=== PATIENT | female | born 1990 | race African-American/Black ===

== ENCOUNTER 2023-01-11 18:40 | Inpatient (IN) | payer MEDICAID, OTHER ==
[~2023-01-11] VITALS: Ht 165.1 cm; Wt 103.6 kg
[2023-01-11] VITALS (9 sets, daily range): BP systolic 123–153; BP diastolic 60–94
[2023-01-11] MEDS ORDERED: IRON65TA2 PO (19:02)
[2023-01-11] MEDS ORDERED: ASPI81CH33 PO (19:02)
[2023-01-11] MEDS ORDERED: PRENTAB9 PO (19:02)
[2023-01-11] MEDS ORDERED: INSUR50VL SC (19:02)
[2023-01-11] MEDS ORDERED: VITA250T4 PO (19:02)
[2023-01-11] MEDS ORDERED: INSURSD SC (19:02)
[2023-01-11] MEDS ORDERED: HOME MED LIST COMPLETE! XX SCH (19:05)
[2023-01-11 20:13] LABS: HEMATOCRIT 27.9 % (36.0-47.0); HEMOGLOBIN 8.8 g/dl (12.0-15.5); MEAN CORPUSCULAR HEMOGLOBIN 24.7 pg (27.0-33.0); MEAN CORPUSCULAR HGB CONC 31.5 g/dl (32.0-36.5); MEAN CORPUSCULAR VOLUME 78.4 fl (80.0-96.0); PLATELET COUNT, AUTOMATED 248 10^3/uL (150-450); RED BLOOD COUNT 3.56 10^6/uL (4.00-5.40); WHITE BLOOD COUNT 6.5 10^3/uL (4.0-10.0)
[2023-01-11] MEDS ORDERED: LR 1,000 ML IV ONE (20:20)
[2023-01-11 20:37] LABS: ALBUMIN 2.3 G/DL (3.2-5.2); ALKALINE PHOSPHATASE 163 U/L (46-116); ALT/SGPT 11 U/L (7.0-40); AST/SGOT 19 U/L (<34); BILIRUBIN,TOTAL 0.2 MG/DL (0.3-1.2); BLOOD UREA NITROGEN 6 MG/DL (9-23); CALCIUM LEVEL 8.5 MG/DL (8.5-10.1); CARBON DIOXIDE LEVEL 25 MMOL/L (20-31); CHLORIDE LEVEL 107 MMOL/L (98-107); CREATININE FOR GFR 0.65 MG/DL (0.55-1.30); GLOMERULAR FILTRATION RATE > 60.0 (>60); GLUCOSE, FASTING 109 MG/DL (60-100); POTASSIUM SERUM 3.7 MMOL/L (3.5-5.1); SODIUM LEVEL 139 MMOL/L (136-145); TOTAL PROTEIN 5.6 G/DL (5.7-8.2)
[2023-01-11] MEDS ORDERED: OXYTOCIN INJ 10UNITS/ML 1ML VIAL IM PRN (21:05)
[2023-01-11] MEDS ORDERED: LR 1,000 ML IV SCH (21:05)
[2023-01-11] MEDS ORDERED: METHYLERGONOVINE MALEATE 0.2MG/ML 1ML VIAL IM PRN (21:05)
[2023-01-11] MEDS ORDERED: TRANEXAMIC ACID INJection 1,000 MG in NS 100 ML IV PRN (21:05)
[2023-01-11] MEDS ORDERED: OXYTOCIN DRIP 30 UNITS in IV 1 EA IV PRN ×4 (21:05)
[2023-01-11] MEDS ORDERED: LIDOCAINE 1% MDV 20ML VIAL INFIL PRN (21:05)
[2023-01-11] MEDS ORDERED: OXYTOCIN DRIP 30 UNITS in IV 1 EA IV SCH (21:05)
[2023-01-11 21:32] LABS: TOTAL PROTEIN,RANDOM URINE 7.9 MG/DL (0.0-14.0)
[2023-01-11 21:37] LABS: CREATININE,RANDOM URINE 56.7 MG/DL
[2023-01-11] MEDS: LR 1,000 ML IV SCH (23:49)
[2023-01-12] VITALS (67 sets, daily range): BP systolic 80–175; BP diastolic 45–100
[2023-01-12] MEDS ORDERED: ACETAMINOPHEN 500 MG TAB PO PRN (09:20)
[2023-01-12] MEDS: LR 1,000 ML IV SCH ×2 (09:41→15:48)
[2023-01-12] MEDS ORDERED: LR 500 ML IV PRN (11:40)
[2023-01-12] MEDS ORDERED: EPIDURAL/PCA KEYS XX PRN (11:40)
[2023-01-12] MEDS ORDERED: FENTANYL/ROPIVACAINE/NACL BAG 100 ML EPIDURAL SCH (11:40)
[2023-01-12] MEDS ORDERED: ePHEDrine SULFATE 25 MG/5 ML(5MG/ML) SYRINGE IVP PRN (11:40)
[2023-01-12] MEDS ORDERED: NALOXONE INJ 0.4MG/1ML VIAL IV PRN (11:40)
[2023-01-12] MEDS ORDERED: ONDANSETRON 4MG 2ML VIAL IV PRN ×2 (11:40→17:25)
[2023-01-12] MEDS ORDERED: diphenhydrAMINE 50MG/ML VIAL IV PRN (11:40)
[2023-01-12] MEDS ORDERED: OXYTOCIN INJ 10UNITS/ML 1ML VIAL IM PRN (15:15)
[2023-01-12] MEDS ORDERED: OXYTOCIN DRIP 30 UNITS in IV 1 EA IV SCH ×5 (15:15→17:25)
[2023-01-12 17:05] LABS: CORD GAS ABE A -6.7; CORD GAS ABE V -6.2; CORD GAS HCO3 A 22.5 MEQ/L; CORD GAS HCO3 V 21.8 MEQ/L; CORD GAS O2 SAT A 26.5 %; CORD GAS O2 SAT V 53.3 %; CORD GAS PCO2 A 61.1 mmHg; CORD GAS PCO2 V 52.4 mmHg; CORD GAS PH A 7.184 UNITS; CORD GAS PH V 7.237 UNITS; CORD GAS PO2 A 15.2 mmHg; CORD GAS PO2 V 25.4 mmHg; CORD GAS SBC A 17.5 MEQ/L; CORD GAS SBC V 18.4 MEQ/L; CORD GAS TCO2 A 24.4 MEQ/L; CORD GAS TCO2 V 23.4 MEQ/L
[2023-01-12] MEDS ORDERED: ACETAMINOPHEN TAB 650MG DOSE (2X325MG) PO PRN (17:25)
[2023-01-12] MEDS ORDERED: METHYLERGONOVINE MALEATE 0.2 MG TAB PO PRN (17:25)
[2023-01-12] MEDS ORDERED: IBUPROFEN 600MG TAB PO PRN (17:25)
[2023-01-12] MEDS ORDERED: MOM 30ML SUSPENSION UDC PO PRN (17:25)
[2023-01-12] MEDS ORDERED: DIBUCAINE 1% OINTMENT 30GM TOP PRN (17:25)
[2023-01-12] MEDS ORDERED: RHOGAM 300MCG (1500IU) INJ IM SCH (17:25)
[2023-01-12] MEDS ORDERED: DOCUSATE SODIUM 100MG CAPSULE PO PRN (17:25)
[2023-01-12] MEDS: IBUPROFEN 800 MG TAB PO PRN (18:46)
[2023-01-12] MEDS: ACETAMINOPHEN 500 MG TAB PO PRN (21:13)
[2023-01-13 06:43] LABS: HEMATOCRIT 26.1 % (36.0-47.0); HEMOGLOBIN 8.3 g/dl (12.0-15.5); MEAN CORPUSCULAR HEMOGLOBIN 24.6 pg (27.0-33.0); MEAN CORPUSCULAR HGB CONC 31.8 g/dl (32.0-36.5); MEAN CORPUSCULAR VOLUME 77.4 fl (80.0-96.0); PLATELET COUNT, AUTOMATED 217 10^3/uL (150-450); RED BLOOD COUNT 3.37 10^6/uL (4.00-5.40); WHITE BLOOD COUNT 9.8 10^3/uL (4.0-10.0)
[2023-01-13] MEDS: PRENATAL VITAMINS CHEWABLE TABLET PO SCH (10:59)
[2023-01-13] MEDS: FERROUS SULFATE 325MG TAB PO SCH (10:59)
[2023-01-13] MEDS: IBUPROFEN 800 MG TAB PO PRN (16:04)
[2023-01-13] MEDS: ACETAMINOPHEN 500 MG TAB PO PRN ×2 (17:40→22:58)
[2023-01-14] MEDS: IBUPROFEN 800 MG TAB PO PRN ×2 (00:19→10:35)
[2023-01-14] MEDS: ACETAMINOPHEN 500 MG TAB PO PRN (06:02)
[2023-01-14 06:30] VITALS: BP 121/71
[2023-01-14] MEDS ORDERED: MEASLES,MUMPS,RUBELLA VACCINE INJ (MMR-II) SC.IMMUN ONE (09:00)
[2023-01-14] MEDS: FERROUS SULFATE 325MG TAB PO SCH (10:34)
[2023-01-14] MEDS: PRENATAL VITAMINS CHEWABLE TABLET PO SCH (10:35)
== END 2023-01-14 15:25 | disposition home or self-care (01) | DRG 807 ==
LOC: M LDO 18:40 → M LDI 21:19 → M OBS 01-12 20:59
PROVIDERS: ADMIT Obstetrics & Gynecology; ATTEND Obstetrics & Gynecology
PROC: 3E033VJ Introduction of Other Hormone into Peripheral Vein, Percutaneous Approach (ICD-10-PCS; 2023-01-11)
PROC: 10E0XZZ Delivery of Products of Conception, External Approach (ICD-10-PCS; principal; 2023-01-12)
DX: O13.4 Gestational [pregnancy-induced] hypertension without significant proteinuria, complicating childbirth (principal); Z37.0 Single live birth; Z3A.38 38 weeks gestation of pregnancy; O34.219 Maternal care for unspecified type scar from previous cesarean delivery; O24.424 Gestational diabetes mellitus in childbirth, insulin controlled; O99.02 Anemia complicating childbirth; O66.0 Obstructed labor due to shoulder dystocia

== ENCOUNTER → 2023-03-13 | Outpatient (CLI) | payer OTHER ==
[~2023-03-13] MED LIST: ASPI81CH33 PO; INSUR50VL SC; INSURSD SC; IRON65TA2 PO; PRENTAB9 PO; VITA250T4 PO
== END ==
LOC: M PLAIMG 12:06
PROVIDERS: ATTEND Family Medicine
DX: Z53.9 Procedure and treatment not carried out, unspecified reason (principal)

== ENCOUNTER 2023-09-09 09:09 | Emergency (ER) | payer OTHER ==
[~2023-09-09] VITALS: Ht 162.6 cm; Wt 100.0 kg
[~2023-09-09 09:09] MED LIST changes: +INSU100V19 SC; -INSURSD SC
[2023-09-09] MEDS ORDERED: AMLO1TAB25 (09:30)
[2023-09-09 12:31] LABS: BASO % 0.5 % (0.0-1.0); EOS # 0.1 10^3/uL (0.0-0.5); HEMATOCRIT 39.4 % (36.0-47.0); HEMOGLOBIN 12.5 g/dl (12.0-15.5); LYMPH # 2.6 10^3/uL (1.5-5.0); LYMPH % 43.3 % (24.0-44.0); MEAN CORPUSCULAR HEMOGLOBIN 26.6 pg (27.0-33.0); MEAN CORPUSCULAR HGB CONC 31.7 g/dl (32.0-36.5); MEAN CORPUSCULAR VOLUME 83.8 fl (80.0-96.0); MONO # 0.5 10^3/uL (0.0-0.8); MONO % 7.5 % (2.0-8.0); NEUTROPHILS # 2.9 10^3/uL (1.5-8.5); NEUTROPHILS % 47.4 % (36.0-66.0); PLATELET COUNT, AUTOMATED 336 10^3/uL (150-450)
[2023-09-09 12:44] LABS: INR 1.06; PROTHROMBIN TIME 13.5 SECONDS (12.5-14.5)
[2023-09-09 12:45] LABS: PARTIAL THROMBOPLASTIN TIME 33.6 SECONDS (24.8-34.2)
[2023-09-09 12:47] LABS: D-DIMER QUANT 0.34 ug/mL (<0.5)
[2023-09-09 13:02] LABS: CK-MB VALUE MASS < 1.0 NG/ML (<3.6); LIPASE 54 U/L (12-53)
[2023-09-09 13:04] LABS: ALBUMIN 3.6 G/DL (3.2-5.2); ALKALINE PHOSPHATASE 138 U/L (46-116); ALT/SGPT 24 U/L (7.0-40); AST/SGOT 19 U/L (<34); BILIRUBIN,DIRECT 0.1 MG/DL (<0.4); BILIRUBIN,TOTAL 0.4 MG/DL (0.3-1.2); BLOOD UREA NITROGEN 8 MG/DL (9-23); CALCIUM LEVEL 9.7 MG/DL (8.5-10.1); CARBON DIOXIDE LEVEL 28 MMOL/L (20-31); CHLORIDE LEVEL 107 MMOL/L (98-107); CPK CREATINE PHOSPHOKINASE 141 U/L (34-145); CREATININE FOR GFR 0.75 MG/DL (0.55-1.30); GLOMERULAR FILTRATION RATE > 60.0 (>60); GLUCOSE, FASTING 99 MG/DL (60-100); POTASSIUM SERUM 4.3 MMOL/L (3.5-5.1); SODIUM LEVEL 143 MMOL/L (136-145); TOTAL PROTEIN 7.6 G/DL (5.7-8.2)
[2023-09-09 13:06] LABS: HCG, SERUM QUALITATIVE NEGATIVE (NEGATIVE); THYROID STIMULATING HORMONE 1.017 uIU/ML (0.55-4.78)
[2023-09-09 13:07] LABS: FREE T4 0.94 NG/DL (0.89-1.76)
[2023-09-09 13:21] LABS: RSV AMPLIFICATION NEGATIVE (NEGATIVE)
[2023-09-09 13:53] LABS: CK-MB VALUE MASS < 1.0 NG/ML (<3.6)
[2023-09-09 13:54] LABS: CPK CREATINE PHOSPHOKINASE 131 U/L (34-145); MB/CK RELATIVE INDEX 0.76 (< OR =4)
[2023-09-09 15:17] VITALS: BP 134/69; TEMP 97.5; O2SAT 99
== END 2023-09-09 15:20 | disposition home or self-care (01) ==
LOC: M ED 09:09
DX: R07.9 Chest pain, unspecified (principal); I10 Essential (primary) hypertension; Z79.899 Other long term (current) drug therapy

== ENCOUNTER → 2024-03-01 | Outpatient (REF) | payer OTHER ==
[~2024-03-01] MED LIST changes: +AMLO1TAB25; +VITA250T27 PO; -VITA250T4 PO
== END ==
LOC: M LAB REF 17:00
PROVIDERS: ATTEND Registered Nurse
DX: J02.9 Acute pharyngitis, unspecified (principal)